=== PATIENT | female | born 1955 | race Caucasian/White ===

== ENCOUNTER 2016-05-30 14:32 | Outpatient (CLI) | payer BC ==
[2016-05-30 15:27] LABS: eGFR (African) > 60; eGFR (Non-African) > 60
== END 2016-05-30 14:33 ==
LOC: LAB 14:32
PROVIDERS: ATTEND Physician Assistant
DX: Z00.00 Encounter for general adult medical examination without abnormal findings (principal); Z13.6 Encounter for screening for cardiovascular disorders
CPT/HCPCS: 36415; 80053; 80061

== ENCOUNTER 2016-11-05 11:00 | Outpatient (CLI) | payer BC | END 2016-11-05 11:02 | LOC: LABRHC 11:00 | PROVIDERS: ATTEND Physician Assistant | DX: S81.802A Unspecified open wound, left lower leg, initial encounter (principal); T30.4 Corrosion of unspecified body region, unspecified degree; X58.XXXA Exposure to other specified factors, initial encounter; Y93.9 Activity, unspecified; Y99.9 Unspecified external cause status | CPT/HCPCS: 87070; 87186 ==

== ENCOUNTER 2017-02-28 10:21 | Emergency (ER) | payer BC ==
[2017-02-28 10:37] VITALS: BP 132/67
--- NOTE | 2017-02-28 10:50 | ED Physician Documentation ---
General Adult - HISTORIAN Historian: patient - HPI Stated Complaint: Fit for Confinement Chief Complaint: General Adult Further Comments: yes (61 year old female patient brought in by PD for "fit for confinement". Patient denies pain, denies dyspnea, denies chest pain, denies N/ V. " I don't know why I'm here".) - ROS CONST: no problems EYES/ENT: none CVS/RESP: none GI/: none MS/SKIN/LYMPH: none NEURO/PSYCH: denies: headache, fainting, dizziness, tingling, numbness, difficulty walking, difficulty with speech - PAST HX Past History: none Other History: other (restless leg syndrome) Surgeries/Procedures: other (right leg - ORIF) Allergies/Adverse Reactions: Allergies Allergy/AdvReac Type Severity Reaction Status Date / Time No Known Drug Allergies Allergy Verified 02/28/17 10:37 - SOCIAL HX Smoking History: cigarettes - FAMILY HX Family History: No - VITAL SIGNS Vital Signs: Vital Signs Temp Pulse Resp BP Pulse Ox 97.1 F L 84 18 132/67 99 02/28/17 10:25 02/28/17 10:25 02/28/17 10:25 02/28/17 10:25 02/28/17 10:25 - REVIEWED ASSESSMENTS Nursing Assessment Reviewed: Yes Vitals Reviewed: Yes General Adult Physical Exam - PHYSICAL EXAM GENERAL APPEARANCE: [id number] N EENT: eye inspection normal, GIOVANNA RESPIRATORY: no resp distress, chest non-tender, breath sounds normal CVS: reg rate & rhythm, heart sounds normal, equal pulses, no murmur, no gallop , PMI nml, no JVD, no friction rub, 24 ABDOMEN: soft, no organomegaly, normal bowel sounds, no abdominal bruit, no distension SKIN: normal color, warm/dry, NR, INT, PAL, DR EXTREMITIES: non-tender, normal range of motion, no evidence of injury, no edema , J, JUNIOR ACCOUNTANT BOOKKEEPER NEURO: oriented X3, CN's nml as tested, motor nml, sensation nml, mood/affect nml Discharge Clincal Impression: Normal exam Referrals: Jayashree Ye MD [Primary Care Provider] - 2 Days Condition: Stable Disposition: 01 HOME, SELF-CARE Decision to Admit: NO Decision Time: 10:40
== END 2017-02-28 10:42 | disposition home or self-care (01) ==
LOC: ED 10:21
CPT/HCPCS: 99283

== ENCOUNTER 2017-05-12 22:57 | Emergency (ER) | payer BC ==
--- NOTE | 2017-05-12 23:14 | ED Physician Documentation ---
General Adult - HISTORIAN Historian: patient, other (police) - HPI Chief Complaint: General Adult Additional Information: she is under arrest and was found to have illegal substances on her person, she is being taken to [facility], and the authorities want a fit for confiement exam. BUT , thepatient refuses any medical personel interaction, she refuses an exam, states that she has no medical complaints, feels fine, she seems cohearant, and states the reason for her refusal is she got a large bill from the hospital the last time she was here. She refuses to sign a AMA form, or consent to treat form. Her VS are stable and she answers questions appropriately and has no apparent disabilities. Onset: minutes Timing: still present Severity: mild Further Comments: no - ROS CONST: no problems EYES/ENT: none CVS/RESP: none GI/: none MS/SKIN/LYMPH: none NEURO/PSYCH: denies: headache, fainting, dizziness, tingling, numbness, difficulty walking, difficulty with speech - PAST HX Past History: other (unknown) Other History: none Surgeries/Procedures: other (unknown) Allergies/Adverse Reactions: Allergies Allergy/AdvReac Type Severity Reaction Status Date / Time No Known Drug Allergies Allergy Verified 02/28/17 10:37 - SOCIAL HX Smoking History: other (unknown) Alcohol Use: other (unknown) Drug Use: other (unknown) - FAMILY HX Family History: No - VITAL SIGNS Vital Signs: Vital Signs Temp Pulse Resp BP Pulse Ox 132/67 02/28/17 10:42 - REVIEWED ASSESSMENTS Nursing Assessment Reviewed: Yes Vitals Reviewed: Yes General Adult Physical Exam - PHYSICAL EXAM GENERAL APPEARANCE: no distress EENT: other (unable) NECK: other (unable) RESPIRATORY: no resp distress, other (refuses) CVS: other (refuses exam) ABDOMEN: other (refuses exam) SKIN: normal color EXTREMITIES: other (refuses exam) NEURO: oriented X3, mood/affect nml, cognition normal Discharge Clincal Impression: Normal exam Referrals: Jayashree Ye MD [Primary Care Provider] - 2 Days Condition: Stable Disposition: AGAINST MEDICAL ADVICE Decision to Admit: NO Date of Decison to Admit: 05/12/17 Decision Time: 23:17
[2017-05-12 23:21] VITALS: BP 185/90
== END 2017-05-12 23:29 | disposition left against medical advice (07) ==
LOC: ED 22:57
DX: Z02.89 Encounter for other administrative examinations (principal); Z53.21 Procedure and treatment not carried out due to patient leaving prior to being seen by health care provider
CPT/HCPCS: 99281

== ENCOUNTER 2017-05-14 17:07 | Emergency (ER) | payer BC ==
--- NOTE | 2017-05-14 17:32 | ED Physician Documentation ---
General Adult - HISTORIAN Historian: patient, other (mesfin) - HPI Chief Complaint: General Adult Further Comments: yes (61 year old female patient brought in by for evaluation of left thigh wound. Patient has been incarcerated for 3-4 days, off her daily medications. Patient reports spilling grease on her thigh back in November, was referred to wound clinic by PCP, never kept appointment.) - ROS CONST: no problems EYES/ENT: none CVS/RESP: none GI/: none MS/SKIN/LYMPH: none NEURO/PSYCH: denies: headache - PAST HX Past History: other (neuropathy) Allergies/Adverse Reactions: Allergies Allergy/AdvReac Type Severity Reaction Status Date / Time No Known Drug Allergies Allergy Verified 05/12/17 23:15 - SOCIAL HX Smoking History: cigarettes - FAMILY HX Family History: No - VITAL SIGNS Vital Signs: Vital Signs Temp Pulse Resp BP Pulse Ox 185/90 05/12/17 23:16 - REVIEWED ASSESSMENTS Nursing Assessment Reviewed: Yes Vitals Reviewed: Yes Progress - Progress Progress: Cleaned with hibiclens and NS. Attempt to removed non-viable tissue from wound bed with currette and pick ups. Patient tolerated fairly well. No 4% lidocaine available. No wound care dressing available to maximize healing. Patient will need to see wound clinic for management of long chronic healing process. Reviewed recommendations with General Adult Physical Exam - PHYSICAL EXAM GENERAL APPEARANCE: anxious EENT: eye inspection normal, GIOVANNA RESPIRATORY: no resp distress, chest non-tender, breath sounds normal CVS: reg rate & rhythm, heart sounds normal, equal pulses, no murmur, no gallop , PMI nml, no JVD, no friction rub, 24 SKIN: warm/dry, normal color, other (10 x 14 cm chronic wound to left lateral thigh - multiple pocket areas of non-viable tissue, patient reports "pulling off the scabs") EXTREMITIES: non-tender, normal range of motion, no evidence of injury, no edema , J, MANAGER FINE NEURO: oriented X3, CN's nml as tested, motor nml, sensation nml, mood/affect nml Discharge Clincal Impression: Chronic wound of extremity Referrals: Jayashree Ye MD [Primary Care Provider] - 2 Days Additional Instructions: Patient needs referral to wound care clinic Clean BID with hibiclens rinse with water Cover with silver impregnated dressing or adaptic until seen by wound clinic. Keep covered at all times. No tub baths, ok to shower. Condition: Stable Disposition: 01 HOME, SELF-CARE Decision to Admit: NO Decision Time: 17:31
[2017-05-14 17:50] VITALS: BP 181/97
== END 2017-05-14 17:36 | disposition home or self-care (01) ==
LOC: ED 17:07
DX: S70.922A Unspecified superficial injury of left thigh, initial encounter (principal); X58.XXXA Exposure to other specified factors, initial encounter; Y93.9 Activity, unspecified; Y92.9 Unspecified place or not applicable; Y99.9 Unspecified external cause status
CPT/HCPCS: 97597; 97598; 99283